=== PATIENT | female | born 2000 | race Caucasian/White ===

== ENCOUNTER 2020-12-26 22:47 | Emergency (ER) | payer SELFPAY ==
[~2020-12-26] VITALS: Ht 162.6 cm; Wt 72.6 kg
--- NOTE | 2020-12-26 22:47 | NUR ---
pt BIBA for drug ingestion. AAOx4 at times confused. tacchycardic going as high as 170s but currently trending 120s. pt claims ingesting drugs by some men at the bar. patient also drank alcohol 3 cups worth. PMH: DM, enlarged liver Allergies: nyacin
--- NOTE | 2020-12-26 22:47 | NUR ---
PT LYNDA ALS. TAKEN TO BED 9
--- NOTE | 2020-12-26 23:03 | NUR ---
Dr. Boykin examining patient.
[2020-12-26 23:07] VITALS: BP 116/95
[2020-12-26 23:32] LABS: BASOPHILS # (AUTO) 0.1 K/uL (0.00-0.22); BASOPHILS % (AUTO) 0.6 % (0.0-2.0); EOSINOPHILS % (AUTO) 0.2 % (0.0-4.0); HEMATOCRIT 39.2 % (36-48); LYMPHOCYTES # (AUTO) 2.4 K/uL (2.5-16.5); LYMPHOCYTES % (AUTO) 20.6 % (20.5-51.1); MEAN CORPUSCULAR HEMOGLOBIN 29 pg (27-31); MEAN CORPUSCULAR HGB CONC 33 g/dL (33-37); MEAN CORPUSCULAR VOLUME 87.4 fL (80-94); MONOCYTES # (AUTO) 0.6 K/uL (0.8-1.0); MONOCYTES % (AUTO) 5.1 % (1.7-9.3); NEUTROPHILS # (AUTO) 8.6 K/uL (1.8-7.7); NEUTROPHILS % (AUTO) 73.5 % (42.2-75.2); PLATELET COUNT (AUTO) 333 K/uL (140-450); RED BLOOD CELL COUNT(AUTO) 4.49 MIL/uL (4.20-5.40); RED CELL DISTRIBUTION WIDTH 16.6 % (11.6-13.7); WHITE BLOOD COUNT (AUTO) 11.7 K/uL (4.8-10.8)
--- NOTE | 2020-12-26 23:37 | NUR ---
X-Ray at bedside.
[2020-12-26] MEDS: NACL 0.9% 1,000 ML IV ONE (23:42)
[2020-12-26] MEDS: ONDANSETRON 4 MG/2 ML VIAL IVP ONE (23:43)
[2020-12-26] MEDS: ALUMINUM HYD/MAG/SIMETHICONE 30 ML UDC PO ONE (23:43)
[2020-12-26 23:47] LABS: APPEARANCE,URINE CLEAR (CLEAR); BARBITURATE, URINE NEGATIVE ng/ml (NEG <=200); BENZODIAZEPINE, URINE NEGATIVE ng/mL (NEG <=200); BILIRUBIN,URINE NEGATIVE (NEGATIVE); BLOOD, URINE NEGATIVE (NEGATIVE); CANNABINOID, URINE NEGATIVE ng/mL (NEG <=50); COCAINE, URINE NEGATIVE ng/mL (NEG <=300); COLOR,URINE YELLOW (YELLOW); LEUKOCYTE ESTERASE ,URINE NEGATIVE (NEGATIVE); NITRITE, URINE NEGATIVE (NEGATIVE); OPIATE, URINE NEGATIVE ng/mL (NEG <=2000); PHENCYCLIDINE SCREEN,URINE NEGATIVE ng/mL (NEG <=25); UGLUCOSE NEGATIVE (NEGATIVE)
[2020-12-26 23:51] LABS: ALBUMIN 4.1 g/dL (3.4-5.0); ANION GAP 16.2 (8-16); ASPARTATE AMINOTRANSFERASE 32 U/L (15-37); CARBON DIOXIDE 24.2 mmol/L (21-32); CHLORIDE 106 mmol/L (98-107); CREATININE 0.9 mg/dL (0.6-1.3); GFR ARICAN-AMERICAN 102 mL/min (>90); GLUCOSE 115 mg/dL (74-106); POTASSIUM 3.4 mmol/L (3.5-5.1); SODIUM SERUM 143 mmol/L (136-145); TOTAL BILIRUBIN 0.2 mg/dL (0.0-1.0); UREA NITROGEN, BLOOD 9 mg/dL (7-18)
[2020-12-27 00:07] LABS: ACETAMINOPHEN < 0.5 ug/ml (10-30); SALICYLATE < 2.8 mg/dL (2.8-20.0)
--- NOTE | 2020-12-27 00:30 | NUR ---
Patient appears to be resting comfortably in bed. Vital Signs within normal limits. Respirations even and unlabored. no signs of distress currently
--- NOTE | 2020-12-27 01:02 | NUR ---
Pt bp low 93/66, notified
[2020-12-27] MEDS: POTASSIUM CHLORIDE 10 MEQ TABER PO ONE (01:13)
--- NOTE | 2020-12-27 05:05 | NUR ---
Patient appears to be resting comfortably in bed. Vital Signs within normal limits. Respirations even and unlabored.
--- NOTE | 2020-12-27 05:13 | NUR ---
PT AMBULATED WITHOUT ASSISTANCE TO BATHROOM
[2020-12-27 05:27] VITALS: BP 88/45
--- NOTE | 2020-12-27 05:27 | NUR ---
Patient discharged with v/s stable. Written and verbal after care instructions given and explained. Patient verbalized understanding. Ambulatory with steady gait. ID band removed. All questions addressed prior to discharge. Advised to follow up with PMD.
--- NOTE | 2020-12-28 19:44 | NUR ---
LATE ENTRY-- 0.9% NS INFUSION DISCONTINUED AT 0520
== END 2020-12-27 05:27 | disposition home or self-care (01) ==
LOC: MED 22:47
DX: F10.129 Alcohol abuse with intoxication, unspecified (principal); R10.13 Epigastric pain; R12 Heartburn
CPT/HCPCS: 36415; 71045; 80053; 80305; 81003; 81025; 82550; 85025; 93005; 96361; 96374; 99285; G0480; G0482; J2405; J7030